=== PATIENT | male | born 1970 | race Caucasian/White ===

== ENCOUNTER 2017-08-01 20:14 | Emergency (ER) | payer MEDICARE, MEDICAID ==
[~2017-08-01] VITALS: Ht 180.3 cm; Wt 108.9 kg
[~2017-08-01 20:14] MED LIST: CYMBALTA60 MG; FLEXERIL; FLOVENT HFA 4444 MCG; NAPROSYN500 MG; NEURONTIN600 MG; SEROQUEL300 MG; SINGULAIR 10 MG10 M1; TOPAMAX100 MG; TRILEPTAL300 MG; VENTOLIN HFA 1818 GM
[2017-08-01] MEDS ORDERED: NAPROSYN500 MG PO (20:40)
[2017-08-01 21:18] VITALS: BP 141/99
== END 2017-08-01 21:18 | disposition home or self-care (01) ==
LOC: M.ERS 20:14
DX: G89.29 Other chronic pain (principal); M54.5 Low back pain; F31.9 Bipolar disorder, unspecified; I10 Essential (primary) hypertension; F17.210 Nicotine dependence, cigarettes, uncomplicated; Z88.8 Allergy status to other drugs, medicaments and biological substances; Z88.2 Allergy status to sulfonamides